=== PATIENT | female | born 1985 | race American Indian/Alaskan Native ===

== ENCOUNTER 2022-09-18 16:13 | Emergency (ER) | payer MEDICAID ==
[2022-09-18] MEDS ORDERED: Bupivacaine 0.5% 10 ML SDV INJECT ONE (17:07)
[2022-09-18] MEDS ORDERED: methylPREDNISolone Sodium Succinate 125 MG/2 ML SDV IM ONE (17:22)
== END 2022-09-18 17:46 | disposition home or self-care (01) ==
LOC: JP.ED 16:13
DX: R51.9 Headache, unspecified (principal); M54.2 Cervicalgia; I10 Essential (primary) hypertension; Z79.899 Other long term (current) drug therapy; Z88.5 Allergy status to narcotic agent; Z88.8 Allergy status to other drugs, medicaments and biological substances
CPT/HCPCS: 96372; 99283; J2930; J3490